=== PATIENT | female | born 1975 | race Caucasian/White ===

== ENCOUNTER 2024-03-03 18:45 | Emergency (ER) | payer SELFPAY ==
[2024-03-03 19:24] VITALS: TEMP 97.2
[2024-03-03] MEDS ORDERED: Sodium Chloride 0.9% 1000 ML 1,000 ML ONE (20:56)
[2024-03-03] MEDS ORDERED: Hydromorphone 1 mg/ml Injection ONE (20:56)
[2024-03-03] MEDS ORDERED: Zofran 4 MG/2 ML VIAL ONE (20:56)
[2024-03-03 21:06] LABS: Absolute Neutrophil Ct (ANC) 4.23 x10^3/uL (1.56-6.13); BASOPHIL % 0.6 % (0.1-1.2); Basophil (Absolute #) 0.05 x10^3/uL (0.01-0.08); Eosinophil % 1.1 % (0.7-5.8); Eosinophil (Absolute #) 0.09 x10^3/uL (0.04-0.36); Hematocrit 45.5 % (34.1-44.9); Hemoglobin 14.7 g/dL (11.2-15.7); IMMATURE GRAN # 0.02 x10^3u/L (0.001-0.031); IMMATURE GRAN % 0.2 % (0.001-0.429); Lymphocyte (Absolute #) 3.52 x10^3/uL (1.18-3.74); Lymphocytes % 41.4 % (19.3-51.7); Mean Cell Volume 83.9 fL (79.4-94.8); Mean Corpuscular Hemoglobin 27.1 pg (25.6-32.2); Mean Corpuscular Hgb Concent. 32.3 g/dL (32.2-35.5); Mean Platelet Volume 10.3 fL (9.4-12.3); Monocytes % 7.1 % (4.7-12.5); Neutrophil % 49.6 % (34.0-71.1); Platelet Count 264 x10^3/uL (182-369); Red Blood Count 5.42 x10^6/uL (3.93-5.22); Red Cell Distribution Width 13.7 % (11.7-14.4); White Blood Count 8.5 x10^3/uL (3.98-10.04)
[2024-03-03] MEDS: Hydromorphone 1 mg/ml Injection IV ONE (21:06)
[2024-03-03] MEDS: Zofran 4 MG/2 ML VIAL IV STA (21:06)
[2024-03-03] MEDS: Sodium Chloride 0.9% 1000 ML 1,000 ML IV SCH (21:06)
--- NOTE | 2024-03-03 21:17 | ERPHSYRPT ---
- History of Present Illness Time Seen by Provider: 03/03/24 20:30 Source: patient, family Exam Limitations: no limitations Patient Subjective Stated Complaint: pt has been fighting big toe ulcers for several years and is under the care from a doctor in [place], pt is from there and still has residence but has been living mainly in [place] for the past 3 years, pt is on her third round of Levaquin and Doxycycline but is having red streaks on her toes and going down her foot, pt was on Cipro and Clindamycin off and on for the past couple of years Triage Nursing Assessment: Pt brought to the ER by her , tachycardic, hypertensive, rates pain at this time as a 3 but it does get up to a 10, ashlyn large toes with ulcers on medial sides that have been getting treated for the past couple of years, states that sometimes she goes for 3 consecutive days and gets shots in bilateral hips and states that her toes clear totally up, pulses normal, skin n/w/d, no difficulty with breathing Physician History: This is a 49-year-old white female patient who is brought in by her spouse by private vehicle. She does not have a local primary care provider. Patient has chronic, recurring bilateral first toe ulcerations. The patient spends part of her time living in [place] and part of her time here in [facility]. She does state that she will be living here until May 2024. She has been in [place] and has been on several rounds of Levaquin and doxycycline without much benefit of healing of these ulcerations. She is currently on Cipro and clindamycin. Patient has never had an MRI scan or a bone scan to evaluate for osteomyelitis. She states she has only had an x-ray of her left foot. Patient did state that in the past, she has had "shots" of antibiotics in bilateral hips which "cleared up" the ulcerations that are now present. Patient does not recall what antibiotic that was. Patient had some red, proximal streaking that I was able to visualize on picture she took on her cell phone earlier today. That is since resolved. There is redness and tenderness present. The redness becomes more intense as she is having her feet dangling Timing/Duration: other (Chronic, recurrent) Quality: painful Severity: moderate Location: feet (Lateral first toes) Associated Symptoms: other (Painful bilateral first toes with proximal streaking) Allergies/Adverse Reactions: ketorolac [From Toradol] Adverse Reaction (Verified 03/03/24 19:25) Nausea Home Medications: Insulin Regular, Human [NovoLIN R] 0 unit SQ UD 03/03/24 [History] Hx Tetanus, Diphtheria Vaccination/Date Given: No Hx Influenza Vaccination/Date Given: No Hx Pneumococcal Vaccination/Date Given: No Travel Risk - International Travel Have you traveled outside of the country in past 3 weeks: No - Emerging Infectious Disease Are you exhibiting symptoms associated with any current EIDs: No - Review of Systems Constitutional: No Symptoms Eyes: No Symptoms Ears, Nose, & Throat: No Symptoms Respiratory: No Symptoms Cardiac: No Symptoms Abdominal/Gastrointestinal: No Symptoms Genitourinary Symptoms: No Symptoms Musculoskeletal: No Symptoms Skin: Cellulitis, Other (Ulcerations bilateral first toes plantar aspect) Neurological: No Symptoms Psychological: No Symptoms Endocrine: No Symptoms Hematologic/Lymphatic: No Symptoms Immunological/Allergic: No Symptoms All Other Systems: Reviewed and Negative - Past Medical History Pertinent Past Medical History: Yes Endocrine Medical History: Diabetes Type II Musculoskeletal History: Fractures GI Medical History: GERD, Gallbladder Disease Psycho-Social History: Anxiety Other Medical History: 3 miscarriages and 1 health . broken back. heart murmur - Past Surgical History Past Surgical History: Yes Gastrointestinal: Cholecystectomy Musculoskeletal: Orthopedic Surgery Female Surgical History: Hysterectomy Other Surgical History: retina reattached in left eye. left knee rebuilt. tibea plateau - Female History Hx Now: No (hysterectomy) - Social History Smoking Status: Former smoker Exposure to second hand smoke: No Drug Use: none - Social Determinants of Health Will the patient participate in the screening: Yes Do you worry about a steady place to live?: No Do you have any problems with any of the following?: No known problems In the past 12 months,have you had to go without utilities?: No Transportation Issues: No Has anyone in your support network made you feel unsafe?: No Have you or anyone in your house had to go without enough: No - Nursing Vital Signs Nursing Vital Signs: Initial Vital Signs Temperature 97.2 F 03/03/24 18:54 Pulse Rate 112 H 03/03/24 18:54 Blood Pressure 154/110 03/03/24 18:54 O2 Sat by Pulse Oximetry 97 03/03/24 18:54 Pain Scale Pain Intensity 4 - Physical Exam General Appearance: no apparent distress, alert, anxiety Eye Exam: PERRL/EOMI Ears, Nose, Throat Exam: normal ENT inspection, moist mucous membranes Neck Exam: normal inspection, non-tender, supple, full range of motion Respiratory Exam: airway intact, No chest tenderness, No respiratory distress Cardiovascular Exam: tachycardia Gastrointestinal/Abdomen Exam: No tenderness Pelvic Exam: not done Rectal Exam: not done Back Exam: normal inspection, normal range of motion, No CVA tenderness, No ve rtebral tenderness Extremity Exam: normal inspection, normal range of motion, pelvis stable Neurologic Exam: alert, oriented x 3, cooperative, commercial collections specialist II-XII nml as tested, sensation nml Skin Exam: warm, dry, other (Cellulitis bilateral first toes) SpO2 Interpretation: borderline oxygenation SpO2: 95 O2 Delivery: Room Air - Course Nursing assessment & vital signs reviewed: Yes Ordered Tests: Active Orders 24 hr Category Date Time Status IV Insertion STAT Care 03/03/24 20:35 Active Pulse Oximetry (ED) STAT Care 03/03/24 20:35 Active BLOOD CULTURE Stat Lab 03/03/24 21:00 Received CBC W DIFF Stat Lab 03/03/24 20:50 Completed CMP Stat Lab 03/03/24 20:50 Completed Lactic Acid Stat Lab 03/03/24 20:50 Completed Medication Summary Generic Name Dose Route Start Last Admin Trade Name Freq PRN Reason Stop Dose Admin Sodium Chloride 1,000 mls @ 100 mls/hr 03/03/24 20:45 03/03/24 21:06 Sodium Chloride 0.9% 1000 Ml IV 04/02/24 20:44 100 mls/hr .Q10H CLAUDIA Administration Discontinued Medications Generic Name Dose Route Start Last Admin Trade Name Freq PRN Reason Stop Dose Admin Hydromorphone HCl 1 mg 03/03/24 20:35 03/03/24 21:06 Hydromorphone 1 Mg/1ml Inj IV 03/03/24 20:36 1 mg STAT ONE Administration Hydromorphone HCl Confirm 03/03/24 20:56 Hydromorphone 1 Mg/1ml Inj Administered 03/03/24 20:57 Dose 1 mg .ROUTE .STK-MED ONE Piperacillin Sod/Tazobactam 100 mls @ 200 mls/hr 03/03/24 21:17 03/03/24 21:25 Sod 4.5 gm/ Sodium Chloride IV 03/03/24 21:46 200 mls/hr STAT ONE Administration Sodium Chloride Confirm 03/03/24 21:23 Sodium Chloride 100ml Mini-Bag Plus Administered 03/03/24 21:24 Dose 100 mls @ ud IV .STK-MED ONE Ondansetron HCl 4 mg 03/03/24 20:35 03/03/24 21:06 Ondansetron Hcl 4 Mg/2 Ml Vial IV 03/03/24 20:36 4 mg STAT STA Administration Ondansetron HCl Confirm 03/03/24 20:56 Ondansetron Hcl 4 Mg/2 Ml Vial Administered 03/03/24 20:57 Dose 4 mg .ROUTE .STK-MED ONE Piperacillin Sod/Tazobactam Sod Confirm 03/03/24 21:23 Piperacillin/Tazobactam Sodium 4.5 Gm Vial Administered 03/03/24 21:24 Dose 4.5 gm IV .STK-MED ONE Lab/Rad Data: Laboratory Result Diagrams 03/03/24 20:50 03/03/24 20:50 Laboratory Results 03/03/24 03/03/24 03/03/24 Range/Units 20:50 20:50 20:50 WBC 8.5 (3.98-10.04) x10^3/uL RBC 5.42 H (3.93-5.22) x10^6/uL Hgb 14.7 (11.2-15.7) g/dL Hct 45.5 H (34.1-44.9) % MCV 83.9 (79.4-94.8) fL MCH 27.1 (25.6-32.2) pg MCHC 32.3 (32.2-35.5) g/dL RDW 13.7 (11.7-14.4) % Plt Count 264 (182-369) x10^3/uL MPV 10.3 (9.4-12.3) fL Gran % 49.6 (34.0-71.1) % Immature Gran % (Auto) 0.2 (0.001-0.429) % Nucleat RBC Rel Count 0.0 (0.00-0.2) % Eos # (Auto) 0.09 (0.04-0.36) x10^3/uL Immature Gran # (Auto) 0.02 (0.001-0.031) x10^3u/L Absolute Lymphs (auto) 3.52 (1.18-3.74) x10^3/uL Absolute Monos (auto) 0.60 (0.24-0.86) x10^3/uL Absolute Nucleated RBC 0.00 (0.00-0.012) x10^3u/L Lymphocytes % 41.4 (19.3-51.7) % Monocytes % 7.1 (4.7-12.5) % Eosinophils % 1.1 (0.7-5.8) % Basophils % 0.6 (0.1-1.2) % Absolute Granulocytes 4.23 (1.56-6.13) x10^3/uL Basophils # 0.05 (0.01-0.08) x10^3/uL Sodium 136 (135-145) mmol/L Potassium 4.1 (3.5-5.1) mmol/L Chloride 101 (98-107) mmol/L Carbon Dioxide 25 (22-30) mmol/L Anion Gap 14.0 (5-15) MEQ/L BUN 28 H (7-17) mg/dL Creatinine 0.54 (0.52-1.04) mg/dL Estimated GFR 112.8 ML/MIN Glucose 202 H (74-106) mg/dL Lactic Acid 1.6 (0.4-2.0) Calcium 9.9 (8.4-10.2) mg/dL Total Bilirubin 0.30 (0.2-1.3) mg/dL AST 34 (14-36) U/L ALT 44 H (0-35) U/L Alkaline Phosphatase 152 H (38-126) U/L Serum Total Protein 8.6 H (6.3-8.2) g/dL Albumin 4.4 (3.5-5.0) g/dL - Progress Progress: improved, pain not gone completely Progress Note: 03/03/24 21:23 My medical decision making and the assignment of moderate complexity to this pa zulema's medical issue today is based on review of the patient's past medical history, review of the patient's medication list, review of the patient drug allergy list, history present illness and physical findings on examination. The workup in this patient includes placement of intravenous line, blood culture, CBC, CMP, lactic acid level, infusion of Zosyn 4.5 g IV. We also provided her with infusion of 1 mg intravenous Dilaudid and 4 mg intravenous Zofran. 03/03/24 22:25 I interpreted the patient's laboratory data results. Based on the laboratory data results, there is no evidence of any acute, emergent findings. Clinically, this patient has infections of the toes that are chronic and i ntermittent. There is ulcerations in this area and she is diabetic. She is afebrile, her white count and differential are within normal limits, her anion gap and CO2 are normal and her lactic acid is normal. I do not think she needs admission into the hospital or placement into observation in the hospital setting. She needs to have out patient position. We will provide her with names and phone numbers of nurse practitioners and/or physicians that they can call on 03/06/2024. We will discontinue her current oral antibiotics and write for Augmentin and sulfa medication as well as Diflucan to help avoid candidal infection/overgrowth. Counseled pt/family regarding: lab results, diagnosis Medical Desision Making - Independent Historian Additional History obtained from: Spouse - Diagnostic Testing Diagnostic test were ordered, analyzed, and reviewed by me: Yes - Risk of complications The pt has a mod risk of morbidity or mortality based on: Need for prescription drug management - Departure Departure Disposition: Home Clinical Impression: Cellulitis, toe Condition: Stable Critical Care Time: No Referrals: DOCTOR,NO FAMILY [Primary Care Provider] - Follow up/PCP as directed Additional Instructions: Soak your feet in warm Epsom salts and soapy water twice a day. Stop your current antibiotic therapy and take your new antibiotics (Augmentin and sulfa). Also, take your Diflucan that I am writing for you as well. Call the nurse practitioner/physicians that are seeing new patients on 03/06/2024. Discussed with them MRI of the bilateral feet and/or bone scan to evaluate for osteomyelitis. Monitor and treat your blood sugar. Prescriptions: Hydrocodone/APAP 5/325 [[place] 5/325 mg] 1 each PO Q8H PRN PRN #8 tablet MDD 3 PRN Reason: Pain Amoxicillin/Potassium Clav [Augmentin 500-125 Tablet] 1 each PO TID 7 Days #21 tablet Smz/Tmp Ds Tablet [Bactrim Ds Tablet] 1 udtab PO BID #14 tablet Fluconazole 100 mg [Diflucan 100 MG] 100 mg PO DAILY #2 tablet
[2024-03-03 21:18] LABS: ALBUMIN 4.4 g/dL (3.5-5.0); BILIRUBIN,TOTAL 0.3 mg/dL (0.2-1.3); Calcium 9.9 mg/dL (8.4-10.2); Creatinine 1 0.54 mg/dL (0.52-1.04); EST GLOMERULAR FILTRATION RATE 112.8 ML/MIN; Potassium 4.1 mmol/L (3.5-5.1); Total Protein 8.6 g/dL (6.3-8.2)
[2024-03-03] MEDS ORDERED: Sodium Chloride 100ML MINI-BAG PLUS 100 ML IV ONE (21:23)
[2024-03-03] MEDS ORDERED: PIPERACILLIN/TAZOBACTAM IV ONE (21:23)
[2024-03-03] MEDS: PIPERACILLIN/TAZOBACTAM 4.5 GM in Sodium Chloride 100ML MINI-BAG PLUS 100 ML IV ONE (21:25)
[2024-03-03 22:26] VITALS: RESP 18
[2024-03-03 22:31] VITALS: O2SAT 95
[2024-03-03] MEDS ORDERED: NORCO 5/325 MG ONE (22:35)
[2024-03-03] MEDS: NORCO 5/325 MG PO ONE (22:36)
[2024-03-03 22:42] VITALS: BP 138/85; PULSE 86
== END 2024-03-03 22:50 | disposition home or self-care (01) ==
LOC: ED 18:45
DX: L03.032 Cellulitis of left toe (principal); L03.031 Cellulitis of right toe; E11.9 Type 2 diabetes mellitus without complications; Z79.4 Long term (current) use of insulin; Z79.891 Long term (current) use of opiate analgesic; Z79.899 Other long term (current) drug therapy
CPT/HCPCS: 36000; 36415; 80053; 83605; 85025; 87040; 94760; 96374; 96375; 99284; J1170; J2405; J2543; A9270-GY

== ENCOUNTER 2024-04-18 05:32 | Day surgery (SDC) | payer MEDICAID ==
[2024-04-18] MEDS ORDERED: Xylocaine 1% Vial 30 ML PF IJ ONE (06:37)
[2024-04-18] MEDS ORDERED: VANCOCIN INJECTION IV ONE (06:37)
[2024-04-18] MEDS ORDERED: Marcaine Mpf 0.5% Vial 30 Ml ONE (06:37)
[2024-04-18 06:53] VITALS: RESP 16
[2024-04-18] MEDS ORDERED: Versed 2 MG/2 ML Injection ONE (06:55)
[2024-04-18] MEDS: Lactated Ringers 1,000 ML IV SCH (06:58)
[2024-04-18 07:04] LABS: Absolute Neutrophil Ct (ANC) 4.14 x10^3/uL (1.56-6.13); BASOPHIL % 0.5 % (0.1-1.2); Basophil (Absolute #) 0.04 x10^3/uL (0.01-0.08); Eosinophil % 1.8 % (0.7-5.8); Eosinophil (Absolute #) 0.15 x10^3/uL (0.04-0.36); Hemoglobin 14.3 g/dL (11.2-15.7); IMMATURE GRAN # 0.02 x10^3u/L (0.001-0.031); IMMATURE GRAN % 0.2 % (0.001-0.429); Lymphocyte (Absolute #) 3.11 x10^3/uL (1.18-3.74); Lymphocytes % 38.3 % (19.3-51.7); Mean Corpuscular Hemoglobin 27.9 pg (25.6-32.2); Mean Corpuscular Hgb Concent. 33.3 g/dL (32.2-35.5); Mean Platelet Volume 10.2 fL (9.4-12.3); Monocyte (Absolute #) 0.65 x10^3/uL (0.24-0.86); Neutrophil % 51.2 % (34.0-71.1); Platelet Count 230 x10^3/uL (182-369); Red Blood Count 5.12 x10^6/uL (3.93-5.22); Red Cell Distribution Width 13.6 % (11.7-14.4); White Blood Count 8.1 x10^3/uL (3.98-10.04)
[2024-04-18] MEDS ORDERED: SUBLIMAZE 100 MCG/2 ML ONE ×2 (07:09→08:08)
[2024-04-18] MEDS ORDERED: DIPRIVAN 200 MG/20 ML IV ONE ×2 (07:09→07:38)
[2024-04-18] MEDS ORDERED: Zofran 4 MG/2 ML VIAL ONE (07:09)
[2024-04-18] MEDS ORDERED: Xylocaine-Mpf 2% 5 Ml Vial ONE (07:09)
[2024-04-18 07:17] LABS: ALBUMIN 4.1 g/dL (3.5-5.0); ANION GAP 15.6 MEQ/L (5-15); BILIRUBIN,TOTAL 0.6 mg/dL (0.2-1.3); Calcium 9.4 mg/dL (8.4-10.2); Creatinine 1 0.55 mg/dL (0.52-1.04); EST GLOMERULAR FILTRATION RATE 112.3 ML/MIN; Potassium 3.9 mmol/L (3.5-5.1); Total Protein 7.8 g/dL (6.3-8.2)
[2024-04-18] MEDS ORDERED: Hydromorphone 1 mg/ml Injection ONE (08:09)
[2024-04-18 09:03] VITALS: BP 128/82; PULSE 83; TEMP 97; O2SAT 95
--- NOTE | 2024-04-18 09:38 | XRAY ---
Indication: Left great toe bone biopsy. Intraoperative fluoroscopy provided for 6 seconds. 2 digital spot images submitted for interpretation demonstrates initial needle tip projecting over distal 1st phalanx. Second image demonstrates needle tip projecting over mid shaft proximal 1st phalanx. Correlate with intraoperative findings/report.
--- NOTE | 2024-04-18 12:38 | XRAY ---
6 seconds of fluoroscopy was used in surgery for a left great toe bone biopsy.
--- NOTE | 2024-04-21 10:48 | OP ---
SURGERY DATE/TIME: 04/18/2024 [id number] PREOPERATIVE DIAGNOSES: 1) Osteomyelitis, left distal phalanx. 2) Diabetic foot ulcer. 3) Diabetic peripheral neuropathy. 4) Chronic ulceration to left lower extremity. POSTOPERATIVE DIAGNOSES: 1) Osteomyelitis, left distal phalanx. 2) Diabetic foot ulcer. 3) Diabetic peripheral neuropathy. 4) Chronic ulceration to left lower extremity. PROCEDURE: 1) Bone biopsy of distal phalanx, left hallux. 2) Bone biopsy proximal phalanx, left hallux SURGEON: New Valencia DPM SOLAR ENERGY ADVISOR: TEE Hermosillo HEMOSTASIS: Pressure dressing. ESTIMATED BLOOD LOSS: Minimal. MATERIALS: 3-0 nylon. INJECTABLES: 10 mL of 1:1 mixture of 1% lidocaine plain and 0.5% bupivacaine plain injected in a hallux block-type fashion. INDICATIONS: The patient is a newly consulted patient to my service for bilateral medial IPJ ulcerations which are chronic in nature. The patient has lived between [facility] and in [place] for the last several years and moves between these 2 states frequently. She has had ulcerations to the medial aspect of the IPJs bilaterally for as long as she can remember. These ulcers have gotten infected multiple times in the past. Because of her chronic history, on acquiring her as a patient vascular studies were obtained which demonstrated adequate healing potential as well as MRI. Unfortunately, the MRI to the left lower extremity demonstrated some increased uptake, increased signal on T2 and dropout on T1 which is drastically indicative of osteomyelitis. From that standpoint, given the patient's absence of clinical infection at this time, decision was made to proceed with a biopsy to either confirm or deny acute osteomyelitis. The patient understands all risks, complications, and benefits of surgical intervention at this time including, but not limited to, infection, hematoma, seroma, possibility of delayed wound healing, non-wound healing, and possible need for further surgical intervention at a later date. No guarantees were provided as to the outcome. This is in order to better assess for surgical planning in the future whether it be an amputation or potentially bone debridement with possible IV antibiotics. The patient understands this. Plenty of time was allowed for her and her to ask questions, which were answered to their apparent satisfaction. It was at this time we decided to proceed. DESCRIPTION OF PROCEDURE AND FINDINGS: The patient was brought into the operating room and placed on the operating room table in the supine position. At this time, monitored anesthesia care was administered until the patient was adequately sedated. The left lower extremity was prepped and draped in the typical sterile fashion and lowered onto the surgical field. At this time, a 10 mL injection consisting of a 1:1 mixture of 1% lidocaine plain and 0.5% bupivacaine plain was injected in a hallux block-type fashion. Following this, a stab incision was made on the lateral side of the distal phalanx of the hallux and a Jamshidi needle was utilized to obtain a core sample of the bone for pathological assessment. The same procedure took place for the proximal phalanx of the hallux. Decision was made to go ahead and proceed and hand these off the field for pathological assessment. Following this, copious amounts of sterile saline were utilized to flush the surgical site. 3-0 nylon was utilize in a simple interrupted-type fashion to coapt the skin edges. Following this, a compression dressing was applied to the hallux of the left great toe consisting of iodine, Adaptic, 2 x 2, Renzo, and sterile Coban. The patient was then reversed from anesthesia and returned to the postoperative anesthesia care unit with vital signs stable and vascular status intact. The patient handled the anesthesia as well as the procedure without significant complications. Postoperative orders as indicated in the patient's discharge chart.
== END 2024-04-18 09:10 | disposition home or self-care (01) ==
LOC: SDC 05:32
PROVIDERS: ATTEND Podiatrist Foot & Ankle Surgery
DX: M86.9 Osteomyelitis, unspecified (principal); E11.621 Type 2 diabetes mellitus with foot ulcer; E11.42 Type 2 diabetes mellitus with diabetic polyneuropathy
CPT/HCPCS: 36415; 73630; 76000; 80053; 82947; 85025; 87046; 87070; 87075; 87116; 87205; 87206; 93005; J1170; J2250; J2405; J2704; J3010; J3370

== ENCOUNTER 2024-04-27 10:35 | Day surgery (SDC) | payer MEDICAID ==
[~2024-04-27 10:35] MED LIST: Marcaine Mpf 0.5% Vial 30 Ml ONE; XYLOCAINE 1% HCL 20 ML MDV ONE
[2024-04-27] MEDS ORDERED: Pepcid 20 MG PO ONE (11:10)
[2024-04-27] MEDS ORDERED: Pepcid 20 MG VIAL IV ONE (11:16)
[2024-04-27 11:22] VITALS: RESP 18
[2024-04-27] MEDS: Pepcid 20 MG VIAL IV ONE (11:25)
[2024-04-27] MEDS: Lactated Ringers 1,000 ML IV SCH (11:26)
[2024-04-27] MEDS: Transderm Scop 1.5MG Patch TOP PRN (11:26)
[2024-04-27] MEDS: CEFAZOLIN 2 GM/100 ML NaCl 2 GM/100 ML IVPB IV SCH (11:26)
[2024-04-27] MEDS ORDERED: Versed 2 MG/2 ML Injection ONE ×2 (12:25→13:23)
[2024-04-27] MEDS: Versed 2 MG/2 ML Injection IV ONE (12:27)
[2024-04-27] MEDS ORDERED: SUBLIMAZE 100 MCG/2 ML ONE (13:26)
[2024-04-27] MEDS ORDERED: DIPRIVAN 200 MG/20 ML IV ONE (13:48)
--- NOTE | 2024-04-27 14:44 | XRAY ---
Indication: Left foot bone biopsy. Intraoperative fluoroscopy provider 5 seconds. 2 digital spot images submitted for interpretation demonstrates bone biopsy tip overlying distal 1st phalanx. Correlate with intraoperative findings/report.
[2024-04-27 14:56] VITALS: PULSE 79
[2024-04-27 14:58] VITALS: BP 159/88; TEMP 98.1; O2SAT 99
--- NOTE | 2024-04-27 15:10 | XRAY ---
5 seconds of fluoroscopy was used in surgery for a left foot bone biopsy.
--- NOTE | 2024-04-28 17:31 | OP ---
SURGERY DATE/TIME: 04/27/2024 [id number] PREOPERATIVE DIAGNOSES: 1) Osteomyelitis, left distal phalanx. 2) Diabetic peripheral neuropathy. 3) Diabetes mellitus, controlled. POSTOPERATIVE DIAGNOSES: 1) Osteomyelitis, left distal phalanx. 2) Diabetic peripheral neuropathy. 3) Diabetes mellitus, controlled. PROCEDURE: Bone biopsy of distal phalanx, left hallux. SURGEON: New Valencia DPM COURIER DRIVER: Juan M Clark NP-Bradley ANESTHESIA: Monitored anesthesia care with intraoperative local block at the level of the hallux. HEMOSTASIS: Pressure dressing. ESTIMATED BLOOD LOSS: Approximately 2 mL. MATERIALS: 3-0 nylon. INJECTABLES: 10 mL of 1:1 mixture of 1% lidocaine plain and 0.5% bupivacaine plain injected in a hallux block-type fashion. INDICATIONS: The patient is a very pleasant 49-year-old female with a past medical history of diabetes mellitus, peripheral neuropathy, chronic ulceration to the bilateral IPJ, as well as potential osteomyelitis as indicated by MRI to the left distal phalanx. At this time, patient wishes to proceed with a bone biopsy in order to assess if there is true acute osteomyelitis or chronic osteomyelitis and come up with a game plan based on this information. Based on this, patient has been made aware of all risks, complications and benefits of surgical intervention, including but not limited to infection, hematoma, seroma, possibility of delayed wound healing, non-wound healing and possible failure of surgical intervention. Patient has been made aware of all of these risks. She wishes to proceed at this time. Plenty of time was allowed for the patient to ask questions along with her , which was answered to her apparent satisfaction. DESCRIPTION OF PROCEDURE AND FINDINGS: At this time, patient was brought into the operating room and placed on the operating room table in the supine position. Monitored anesthesia care was administered until the patient was adequately sedated. Following this, the left lower extremity was prepped and draped in the typical sterile fashion and lowered onto the surgical field. At this time, attention was directed to the left hallux under fluoroscopic guidance where a Jamshidi needle was utilized to take a core sample of the distal phalanx bone biopsy. This was handed off the field for pathological assessment. Once this was performed, copious amounts of sterile saline were utilized to flush the surgical site. This was then sutured utilizing 3-0 nylon in a horizontal mattress-type fashion. Following this, a dressing consisting of Betadine, Adaptic, 4 x 4, Renzo, and 1 inch Coban was applied to the left hallux. The patient was then reversed from anesthesia and returned to the postoperative anesthesia care unit with vital signs stable and vascular status intact. The patient handled the anesthesia as well as the procedure without significant complication. Postoperative orders as indicated in the patient's discharge chart.
== END 2024-04-27 14:48 | disposition home or self-care (01) ==
LOC: SDC 10:35
PROVIDERS: ATTEND Podiatrist Foot & Ankle Surgery
DX: M86.9 Osteomyelitis, unspecified (principal); E11.42 Type 2 diabetes mellitus with diabetic polyneuropathy
CPT/HCPCS: 20225; 73630; 76000; 82947; J0690; J2250; J2704; J3010; A9270-GY

== ENCOUNTER 2024-07-20 05:46 | Day surgery (SDC) | payer OTHER ==
[2024-07-20] MEDS ORDERED: Xylocaine 1% Vial 30 ML PF IJ ONE (06:18)
[2024-07-20] MEDS ORDERED: Marcaine Mpf 0.5% Vial 30 Ml ONE (06:18)
[2024-07-20] MEDS: CEFAZOLIN 2 GM/100 ML NaCl 2 GM/100 ML IVPB IV SCH (06:20)
[2024-07-20] MEDS: Lactated Ringers 1,000 ML IV SCH (06:23)
[2024-07-20] MEDS ORDERED: propofoL IV ONE ×2 (06:36→07:07)
[2024-07-20] MEDS ORDERED: Versed 2 MG/2 ML Injection ONE (06:46)
[2024-07-20] MEDS ORDERED: Ketamine HCl 50 MG/ML ONE (06:48)
[2024-07-20] MEDS ORDERED: Sodium Chloride 0.9% 1000 ML 1,000 ML ONE (07:08)
[2024-07-20] MEDS ORDERED: BREVIBLOC 100 MG/10 ML IV ONE (07:35)
[2024-07-20 08:34] VITALS: RESP 16; TEMP 98.5; O2SAT 96
[2024-07-20 08:52] VITALS: BP 123/79; PULSE 92
--- NOTE | 2024-07-21 15:15 | OP ---
SURGERY DATE/TIME: 07/20/2024 [id number] PREOPERATIVE DIAGNOSES: 1) Osteomyelitis, left great toe. 2) Pain, left foot. 3) Diabetes mellitus. 4) Peripheral neuropathy, left foot. POSTOPERATIVE DIAGNOSES: 1) Osteomyelitis, left great toe. 2) Pain, left foot. 3) Diabetes mellitus. 4) Peripheral neuropathy, left foot. PROCEDURE: Disarticulation of first great toe, left foot. SURGEON: New Valencia DPM DURALUMIN METALWORKER: TEE Hermosillo HEMOSTASIS: Pressure dressing. ESTIMATED BLOOD LOSS: Approximately 10 mL. MATERIALS: 4-0 Monocryl, 3-0 nylon. INJECTABLES: 20 mL of 1:1 mixture of 1% lidocaine plain and 0.5% bupivacaine plain injected in a Jamison block type fashion to the left lower extremity. INDICATIONS: The patient is a very pleasant 49-year-old female very well known to my service for bilateral medial IPJ ulcerations to which the left has been extremely painful, and there has been concern for some bone infection in the past. MRIs were obtained demonstrating some concern for the potential of osteomyelitis. Bone biopsies were taken approximately 4 months ago. However, this demonstrated negative findings. In that time, patient has had subsequent ulcerations and bouts of cellulitis and infection. The pain has increased, and an MRI was taken once again demonstrating worsening indications with T1 dropout and T2 increase of signal, highly indicative of osteomyelitis. Options were provided to the patient as this is not clinically acute infection, and over the last 3 years, she has had this ulcer open and close resulting in significant pain and reducing her quality of life, to proceed with an elective amputation. The patient has thought about this carefully with her and has decided to proceed. From that standpoint, all risks, complications, and benefits of surgical intervention at this time including, but not limited to, infection, hematoma, seroma, possibility of delayed wound healing, non-wound healing, possibility of failure of surgical intervention, and possible need for further surgical intervention at a later date were provided. No guarantees were provided as to the outcome. Plenty of time was allowed for the patient and her to ask questions, which were answered to their apparent satisfaction. It was at this time we decided to proceed. DESCRIPTION OF PROCEDURE AND FINDINGS: The patient was brought into the operating room and placed on the operating room table in the supine position. At this time, monitored anesthesia care was administered until the patient was adequately sedated. The left lower extremity was prepped and draped in the typical sterile fashion and lowered onto the surgical field. At this time, attention was directed to the left great toe where a skin marker was utilized to draw a medial racket-type incision circumferentially around the base of the proximal phalanx and extending past the first metatarsophalangeal head. From that standpoint, a 10 blade was utilized with full-thickness dissection down to the level of bone around this medial racket-type incision perpendicular to the skin margins. Once this was performed, a disarticulation utilizing the same 10 blade was performed at the metatarsal head. The toe was handed off the field at this time for pathological and cultural microbiological assessment. From that standpoint, 1000 mL of sterile saline was utilized to flush the surgical site. Margins were revised with a 15 blade, and then once this was performed, 4-0 Monocryl was utilized for deep closure in a simple interrupted buried-type fashion and then 3-0 nylon was utilized in a horizontal mattress-type fashion coapting the skin edges. Once this was performed, the leg was cleansed with sterile saline and dried. A dressing consisting of Betadine, Adaptic, 4 x 4, Kerlix, ABD and Zana was applied to the patient's left lower extremity. Following this, the patient was reversed from anesthesia and returned to the postoperative anesthesia care unit with vital signs stable and vascular status intact. The patient handled the anesthesia as well as the procedure without significant complication. Postoperative orders as indicated in the patient's discharge chart.
== END 2024-07-20 08:55 | disposition home or self-care (01) ==
LOC: SDC 05:46
PROVIDERS: ATTEND Podiatrist Foot & Ankle Surgery
DX: M86.9 Osteomyelitis, unspecified (principal); M79.672 Pain in left foot; E11.42 Type 2 diabetes mellitus with diabetic polyneuropathy
CPT/HCPCS: 28820; 82947; J0690; J2250; J2704

== ENCOUNTER 2024-10-06 13:58 | Emergency (ER) | payer OTHER ==
[2024-10-06 14:20] VITALS: TEMP 97.7
--- NOTE | 2024-10-06 14:36 | ERPHSYRPT ---
- History of Present Illness Time Seen by Provider: 10/06/24 14:20 Historian: patient, family Exam Limitations: no limitations Patient Subjective Stated Complaint: Pt c/o of right sided upper abdominal pain for the past 3 daysand reports it being swollen and was asleep on the couch and woke up with vomit all down her and choking on the vomit, pt went to the restroom and continued to vomit and reports it tasting like pure blood but the light was off and so she couldn't see it, pt states that she has a fatty liver Triage Nursing Assessment: Pt was brought to the ER by her , hypertensive, rates abdominal pain as 8/10, pulses normal, skin n/w/d, tender with palpatation to the RUQ, gall bladder has been removed, N&V, extreme fatigue and weakness, does see a senior designer, no difficulty breathing, denies chest pain Physician History: This is a morbidly obese 49-year-old white female who arrives by private vehicle accompanied by her spouse is a patient of Dr. Gaona with a complaint of right- sided abdominal pain with associated vomiting episodes for 3 to 4 days. Last evening, patient had been complaining of right upper abdominal pain. She felt that there was a subcutaneous "mass" present and when her pressed that area he could feel it to be approximately the size of a softball and it was t al. Patient has had a cholecystectomy in the past. Patient has a history of "fatty liver". Her abdominal pain measures 8 out of 10. She also has had associated fatigue and weakness. She denies chest pain and she denies shortness of breath. Patient has a history of anxiety, depression, diabetes, gastroesophageal reflux disease and rheumatoid arthritis on methotrexate Timing/Duration: day(s) (3 to 4 days) Quality: aching Abdominal Pain Onset Location: RUQ Pain Radiation: no radiation Severity of Pain-Max: moderate Severity of Pain-Current: moderate Associated Symptoms: nausea, vomiting, weakness, No chest pain, No headache, No shortness of breath Previous symptoms: no prior history, no recent treatment Allergies/Adverse Reactions: adhesive tape Allergy (Verified 10/06/24 14:19) ketorolac [From Toradol] Adverse Reaction (Verified 10/06/24 14:19) Nausea Home Medications: Insulin Regular, Human [NovoLIN R] 0 unit SQ BID 03/03/24 [History] ALPRAZolam 0.25 MG [xanAX 0.25 MG] 1 mg PO HS 04/12/24 [History] Sertraline HCl 50 mg PO DAILY 04/12/24 [History] buPROPion HCL [Wellbutrin Xl] 150 mg PO DAILY 04/12/24 [History] PANTOPRAZOLE 40 mg Tablet [Protonix 40MG Tablet] 40 mg PO QAM 07/20/24 [History] Empagliflozin [Jardiance] 10 mg PO DAILY 10/06/24 [History] Folic Acid 1 mg [Folate 1 mg] 1 mg PO DAILY 10/06/24 [History] Methotrexate Sodium 2.5 mg [Trexall 2.5 mg] 15 mg PO .EVERY Wednesday [History] Pregabalin 150 mg PO BID 10/06/24 [History] Sitagliptin Phosphate [Januvia] 25 mg PO DAILY 10/06/24 [History] Hx Tetanus, Diphtheria Vaccination/Date Given: No Hx Influenza Vaccination/Date Given: No Hx Pneumococcal Vaccination/Date Given: No Travel Risk - International Travel Have you traveled outside of the country in past 3 weeks: No - Emerging Infectious Disease Are you exhibiting symptoms associated with any current EIDs: Yes Symptoms: Abdominal Pain, Vomitting - Review of Systems Constitutional: No Symptoms Eyes: No Symptoms Ears, Nose, & Throat: No Symptoms Respiratory: No Symptoms Cardiac: No Symptoms Abdominal/Gastrointestinal: Abdominal Pain (Right upper quadrant tenderness), Nausea, Vomiting Genitourinary Symptoms: No Symptoms Musculoskeletal: No Symptoms Skin: No Symptoms Neurological: No Symptoms Psychological: No Symptoms Endocrine: No Symptoms Hematologic/Lymphatic: No Symptoms Immunological/Allergic: No Symptoms All Other Systems: Reviewed and Negative - Past Medical History Pertinent Past Medical History: Yes Neurological History: No Pertinent History ENT History: No Pertinent History Cardiac History: No Pertinent History Respiratory History: No Pertinent History Endocrine Medical History: Diabetes Type II Musculoskeletal History: Fractures GI Medical History: GERD History: No Pertinent History Psycho-Social History: Anxiety Female Reproductive Disorders: No Pertinent History Other Medical History: 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 broken back. heart murmur - Past Surgical History Past Surgical History: Yes Neuro Surgical History: No Pertinent History Cardiac: No Pertinent History Respiratory: No Pertinent History Gastrointestinal: Cholecystectomy Genitourinary: No Pertinent History Musculoskeletal: Orthopedic Surgery Female Surgical History: Hysterectomy Other Surgical History: retina reattached in left eye, left great toe bx times 2. left knee rebuilt. tibea plateau - Female History Hx Now: No (hysterectomy) - Social History Smoking Status: Never smoker Exposure to second hand smoke: No Drug Use: none - Social Determinants of Health Will the patient participate in the screening: Yes Do you worry about a steady place to live?: No Do you have any problems with any of the following?: No known problems In the past 12 months,have you had to go without utilities?: No Transportation Issues: No Has anyone in your support network made you feel unsafe?: No Have you or anyone in your house had to go w/o enough food: No - Nursing Vital Signs Nursing Vital Signs: Initial Vital Signs Temperature 97.7 F 10/06/24 14:04 Pulse Rate 104 H 10/06/24 14:04 Blood Pressure 162/91 10/06/24 14:04 O2 Sat by Pulse Oximetry 99 10/06/24 14:04 Pain Scale Pain Intensity 8 - Physical Exam General Appearance: mild distress, alert, anxiety, obese Eye Exam: PERRL/EOMI, eyes nml inspection Ears, Nose, Throat Exam: normal ENT inspection, moist mucous membranes Neck Exam: normal inspection, non-tender, supple, full range of motion Respiratory Exam: normal breath sounds, lungs clear, airway intact, No chest tenderness, No respiratory distress Cardiovascular Exam: regular rate/rhythm, normal heart sounds, normal peripheral pulses Gastrointestinal/Abdomen Exam: soft, normal bowel sounds, tenderness (Right upper quadrant) Pelvic Exam: not done Rectal Exam: not done Back Exam: normal inspection, normal range of motion, No CVA tenderness, No vertebral tenderness Extremity Exam: normal inspection, normal range of motion, pelvis stable Neurologic Exam: alert, oriented x 3, cooperative, electronic intelligence officer II-XII nml as tested, nml cerebellar function, nml station & gait, sensation nml Skin Exam: normal color, warm, dry Lymphatic Exam: No adenopathy SpO2 Interpretation: normal SpO2: 99 O2 Delivery: Room Air - Course Nursing assessment & vital signs reviewed: Yes EKG Interpreted by Me: RATE (94), Sinus Rhythm, NORMAL AXIS, NORMAL INTERVALS, NORMAL QRS, Other (No acute ischemia. QTc is 451) Ordered Tests: Active Orders 24 hr Category Date Time Status EKG-ER Only STAT Care 10/06/24 14:34 Active IV Insertion STAT Care 10/06/24 14:34 Active ABDOMEN AND PELVIS W/0 CONTRAS [CT] Stat Exams 10/06/24 14:35 Completed AMYLASE Stat Lab 10/06/24 14:25 Completed CBC W DIFF Stat Lab 10/06/24 14:25 Completed CMP Stat Lab 10/06/24 14:25 Completed LIPASE Stat Lab 10/06/24 14:25 Completed UA W/RFX UR CULTURE Stat Lab 10/06/24 14:52 Completed Medication Summary Discontinued Medications Generic Name Dose Route Start Last Admin Trade Name Freq PRN Reason Stop Dose Admin Hydromorphone HCl 1 mg 10/06/24 14:34 10/06/24 14:44 Hydromorphone 1 Mg/1ml Inj IV 10/06/24 14:35 1 mg STAT ONE Administration Hydromorphone HCl Confirm 10/06/24 14:43 Hydromorphone 1 Mg/1ml Inj Administered 10/06/24 14:44 Dose 1 mg .ROUTE .STK-MED ONE Sodium Chloride 1,000 mls @ 999 mls/hr 10/06/24 14:34 10/06/24 15:47 Sodium Chloride 0.9% 1000 Ml IV 10/06/24 15:34 Infused .Q1H1M STA Infusion Sodium Chloride Confirm 10/06/24 14:43 Sodium Chloride 0.9% 1000 Ml Administered 10/06/24 14:44 Dose 1,000 mls @ ud .ROUTE .STK-MED ONE Ondansetron HCl 4 mg 10/06/24 14:34 10/06/24 14:44 Ondansetron Hcl 4 Mg/2 Ml Vial IV 10/06/24 14:35 4 mg STAT ONE Administration Ondansetron HCl Confirm 10/06/24 14:43 Ondansetron Hcl 4 Mg/2 Ml Vial Administered 10/06/24 14:44 Dose 4 mg .ROUTE .STK-MED ONE Lab/Rad Data: Laboratory Result Diagrams 10/06/24 14:25 10/06/24 14:25 Laboratory Results 10/06/24 10/06/24 10/06/24 Range/Units 14:52 14:25 14:25 WBC 7.6 (3.98-10.04) x10^3/uL RBC 4.70 (3.93-5.22) x10^6/uL Hgb 13.3 (11.2-15.7) g/dL Hct 41.7 (34.1-44.9) % MCV 88.7 (79.4-94.8) fL MCH 28.3 (25.6-32.2) pg MCHC 31.9 L (32.2-35.5) g/dL RDW 15.3 H (11.7-14.4) % Plt Count 251 (182-369) x10^3/uL MPV 10.2 (9.4-12.3) fL Gran % 52.7 (34.0-71.1) % Immature Gran % (Auto) 0.4 (0.001-0.429) % Nucleat RBC Rel Count 0.0 (0.00-0.2) % Eos # (Auto) 0.13 (0.04-0.36) x10^3/uL Immature Gran # (Auto) 0.03 (0.001-0.031) x10^3u/L Absolute Lymphs (auto) 2.60 (1.18-3.74) x10^3/uL Absolute Monos (auto) 0.78 (0.24-0.86) x10^3/uL Absolute Nucleated RBC 0.00 (0.00-0.012) x10^3u/L Lymphocytes % 34.2 (19.3-51.7) % Monocytes % 10.3 (4.7-12.5) % Eosinophils % 1.7 (0.7-5.8) % Basophils % 0.7 (0.1-1.2) % Absolute Granulocytes 4.01 (1.56-6.13) x10^3/uL Basophils # 0.05 (0.01-0.08) x10^3/uL Sodium 140 (135-145) mmol/L Potassium 4.2 (3.5-5.1) mmol/L Chloride 102 (98-107) mmol/L Carbon Dioxide 27 (22-30) mmol/L Anion Gap 15.2 H (5-15) MEQ/L BUN 20 H (7-17) mg/dL Creatinine 0.59 (0.52-1.04) mg/dL Estimated GFR 110.4 ML/MIN Glucose 139 H (74-106) mg/dL Calcium 9.0 (8.4-10.2) mg/dL Total Bilirubin 0.40 (0.2-1.3) mg/dL AST 33 (14-36) U/L ALT 35 (0-35) U/L Alkaline Phosphatase 151 H (38-126) U/L Serum Total Protein 7.4 (6.3-8.2) g/dL Albumin 4.1 (3.5-5.0) g/dL Amylase 43 (30-110) U/L Lipase 99 (23-300) U/L Urine Color Yellow (Yellow) Urine Appearance Clear (Clear) Urine pH 5.0 (4.6-8.0) Ur Specific Hayes >=1.030 A (1.005-1.030) Urine Protein Negative (Negative) Urine Glucose (UA) >=1000 A (Negative) mg/dL Urine Ketones Trace A (Negative) Urine Blood Negative (Negative) Urine Nitrite Negative (Negative) Urine Bilirubin Negative (Negative) Urine Urobilinogen 0.2 (0.2) mg/dL Ur Leukocyte Esterase Negative (Negative) U Hyaline Cast (Auto) NONE SEEN (0-2) /LPF Urine Microscopic RBC 0-2 (0-5) /HPF Urine Microscopic WBC 6-10 A (0-5) /HPF Ur Epithelial Cells Few (None Seen) /HPF Urine Bacteria None Seen (None Seen) /HPF Urine Culture Reflexed NO (NO) - Progress Progress: improved, pain not gone completely, re-examined Progress Note: 10/06/24 15:20 My medical decision making and the assignment of moderate complexity to this patient's medical issue today is based on review of the patient's past medical history, review of the patient's medication list, reviewed patient drug allergy list, history present illness and physical findings on examination. The workup in this patient includes placement of intravenous line, infusion of normal saline solution, infusion of Dilaudid, infusion of Zofran, CBC, CMP, CT scan of the abdomen pelvis without contrast, urinalysis, Differential diagnosis includes but is not limited to abdominal wall hernia, acute intra-abdominal/intrapelvic abnormality, abdominal wall pain, pyelo nephritis, urinary tract infection 10/06/24 16:46 I interpreted the patient's laboratory data results. Based on the laboratory data results, there are no acute, emergent medical issues. The CT scan of the abdomen pelvis without contrast was interpreted by the radiologist and I reviewed the impression. The impression states mild hepatomegaly. Mild colonic fecal loading. No bowel obstruction or bowel wall thickening. Disc bulges with foraminal stenosis present in visible lumbar spine region. There is mild spondylosis present. No mention of abdominal wall hernia. Counseled pt/family regarding: lab results, diagnosis, need for follow-up, rad results Medical Desision Making - Independent Historian Additional History obtained from: Spouse - Diagnostic Testing Diagnostic test were ordered, analyzed, and reviewed by me: Yes Radiological Interpretation: Reviewed by me, Teleradiologist Report - Risk of complications Low Risk: Low risk of morbidity from additional dx testing or treatment - Departure Departure Disposition: Home Clinical Impression: Abdominal pain, Hepatomegaly, Bulging lumbar disc, Constipation Condition: Stable Critical Care Time: No Referrals: CHONG GAONA MD [Primary Care Provider] - Follow up/PCP as directed Additional Instructions: Drink plenty of fluids. Take your medications as prescribed. May use MiraLAX each morning for no more than 3 mornings. Follow the directions on the [id number] product packaging. Call your primary care provider on 10/09/2024, to make arranges for follow-up appointment for further evaluation management. Prescriptions: Hydrocodone/APAP 5/325 [[place] 5/325 mg] 1 each PO Q12H PRN PRN #6 tablet MDD 2 PRN Reason: Pain
[2024-10-06] MEDS ORDERED: Hydromorphone 1 mg/ml Injection ONE (14:43)
[2024-10-06] MEDS ORDERED: Zofran 4 MG/2 ML VIAL ONE (14:43)
[2024-10-06] MEDS ORDERED: Sodium Chloride 0.9% 1000 ML 1,000 ML ONE (14:43)
[2024-10-06] MEDS: Sodium Chloride 0.9% 1000 ML 1,000 ML IV STA (14:44)
[2024-10-06] MEDS: Zofran 4 MG/2 ML VIAL IV ONE (14:44)
[2024-10-06] MEDS: Hydromorphone 1 mg/ml Injection IV ONE (14:44)
[2024-10-06 14:54] LABS: Absolute Neutrophil Ct (ANC) 4.01 x10^3/uL (1.56-6.13); BASOPHIL % 0.7 % (0.1-1.2); Basophil (Absolute #) 0.05 x10^3/uL (0.01-0.08); Eosinophil % 1.7 % (0.7-5.8); Eosinophil (Absolute #) 0.13 x10^3/uL (0.04-0.36); Hematocrit 41.7 % (34.1-44.9); Hemoglobin 13.3 g/dL (11.2-15.7); IMMATURE GRAN # 0.03 x10^3u/L (0.001-0.031); IMMATURE GRAN % 0.4 % (0.001-0.429); Lymphocytes % 34.2 % (19.3-51.7); Mean Cell Volume 88.7 fL (79.4-94.8); Mean Corpuscular Hemoglobin 28.3 pg (25.6-32.2); Mean Corpuscular Hgb Concent. 31.9 g/dL (32.2-35.5); Mean Platelet Volume 10.2 fL (9.4-12.3); Monocyte (Absolute #) 0.78 x10^3/uL (0.24-0.86); Monocytes % 10.3 % (4.7-12.5); Neutrophil % 52.7 % (34.0-71.1); Platelet Count 251 x10^3/uL (182-369); Red Cell Distribution Width 15.3 % (11.7-14.4); White Blood Count 7.6 x10^3/uL (3.98-10.04)
[2024-10-06 15:01] LABS: Appearance Clear (Clear); Bacteria None Seen /HPF (None Seen); Bilirubin Negative (Negative); Blood Negative (Negative); Epithelial Cells Few /HPF (None Seen); Glucose, Urine >=1000 mg/dL (Negative); Hyaline Casts NONE SEEN /LPF (0-2); Ketones Trace (Negative); Leukocyte Esterase Negative (Negative); Nitrite Negative (Negative); Protein,Urine Dip Negative (Negative); RBC 0-2 /HPF (0-5); Specific Gravity >=1.030 (1.005-1.030); Urobilinogen 0.2 mg/dL (0.2)
[2024-10-06 15:12] LABS: ALBUMIN 4.1 g/dL (3.5-5.0); ANION GAP 15.2 MEQ/L (5-15); BILIRUBIN,TOTAL 0.4 mg/dL (0.2-1.3); Creatinine 1 0.59 mg/dL (0.52-1.04); EST GLOMERULAR FILTRATION RATE 110.4 ML/MIN; Potassium 4.2 mmol/L (3.5-5.1); Total Protein 7.4 g/dL (6.3-8.2)
--- NOTE | 2024-10-06 15:52 | XRAY ---
CLINICAL HISTORY: Right side ABD pain/fullness COMPARISON: No prior studies available for comparison. TECHNIQUE: Non-contrast CT of the abdomen and pelvis was performed, with the following protocol: axial images, and reconstructed coronal and sagittal images. No intravenous contrast was administered. One of the following dose reduction techniques was utilized for this exam: Automated exposure control, adjustment of the mA and/or kV according to patient size, and use of iterative reconstruction. FINDINGS: Abdomen: Liver: The liver is mildly enlarged, measuring 18 cm. No focal lesions, cysts, or masses were identified. Gallbladder and Biliary System: Cholecystectomy. Pancreas: The pancreatic head, body, and tail are visualized and appear normal in size and density. No pancreatic masses or calcifications were noted. Spleen: Normal in size, shape, and density. No splenic lesions or masses were identified. Kidneys and Adrenal Glands: Both kidneys are normal in size, shape, and position. Cortical thickness is within normal limits. No renal calculi or hydronephrosis. Adrenal glands are unremarkable. Appendix: The appendix is not visualized. No evidence of appendiceal abscess or perforation. Pelvis: Multiple pelvic phleboliths. Urinary Bladder: Normal in contour and wall thickness. No intraluminal lesions. Uterus: Hysterectomy. Peritoneal and Retroperitoneal Structures: Bilateral inguinal nonspecific lymph nodes are the largest on the left side, measuring 1.3 x 0.9 cm. No free fluid or abnormal fluid collections were identified within the abdomen or pelvis. No lymphadenopathy was noted. Bowel: Mildly fecal loading, indicating possible constipation. Lipomatosis of the ileocecal valve. The visualized bowel loops are normal in caliber and appearance. No evidence of bowel obstruction or wall thickening. Bones and Soft Tissues: Mild spondylosis of the scanned lumbar vertebrae. L1 compression fraction with vertebroplasty. Multilevel diffuse disc bulges with bilateral neural exit foraminal stenosis. Mild levoscoliosis. The pelvic bones and soft tissues are unremarkable. No abnormal masses were identified. IMPRESSION: 1. Mild hepatomegaly. Further clinical and lab evaluation is advised. 2. Mild colonic fecal loading, indicating possible constipation. Further clinical evaluation is advised. Electronically Signed by: David Brasher MD. (10/06/2024 15:49:50 EDT)
[2024-10-06 16:55] VITALS: PULSE 85
[2024-10-06 17:13] VITALS: BP 113/69; O2SAT 93
== END 2024-10-06 17:17 | disposition home or self-care (01) ==
LOC: ED 13:58
DX: R16.0 Hepatomegaly, not elsewhere classified (principal); M51.369 Other intervertebral disc degeneration, lumbar region without mention of lumbar back pain or lower extremity pain; K59.00 Constipation, unspecified; R10.11 Right upper quadrant pain; R11.2 Nausea with vomiting, unspecified; R53.83 Other fatigue; E11.9 Type 2 diabetes mellitus without complications; Z79.4 Long term (current) use of insulin; Z79.84 Long term (current) use of oral hypoglycemic drugs; Z79.891 Long term (current) use of opiate analgesic; Z79.899 Other long term (current) drug therapy
CPT/HCPCS: 36415; 74176; 80053; 81001; 82150; 83690; 85025; 93005; 96361; 96374; 96375; 99284; 99285; J1171; J2405